=== PATIENT | male | born 1955 | race Caucasian/White ===

== ENCOUNTER 2021-04-08 09:35 | Emergency (ER) | payer MEDICARE ==
[~2021-04-08] VITALS: Ht 180.3 cm; Wt 97.7 kg
[2021-04-08 09:41] VITALS: BP 152/80
== END 2021-04-08 12:37 | disposition left against medical advice (07) ==
LOC: ER 09:35
DX: R51.9 Headache, unspecified (principal); Z53.21 Procedure and treatment not carried out due to patient leaving prior to being seen by health care provider